=== PATIENT | male | born 2000 | race Caucasian/White ===

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

== ENCOUNTER 2019-01-21 00:56 | Emergency (ER) | payer MEDICAID ==
[~2019-01-21] VITALS: Ht 175.3 cm; Wt 67.2 kg
[2019-01-21] MEDS ORDERED: IBUPROFEN 600MG TABLET PO STA (03:40)
[2019-01-21 04:50] VITALS: BP 107/72
== END 2019-01-21 05:08 | disposition home or self-care (01) ==
LOC: ER 00:56
DX: J45.909 Unspecified asthma, uncomplicated (principal); J20.9 Acute bronchitis, unspecified; Z87.891 Personal history of nicotine dependence
CPT/HCPCS: 71045; 87070; 87430; 99284; Z7610

== ENCOUNTER 2024-08-22 11:23 | Emergency (ER) | payer BC, MEDICAID ==
[~2024-08-22] VITALS: Ht 177.8 cm; Wt 85.0 kg
[2024-08-22 11:41] VITALS: O2SAT 98
[2024-08-22] MEDS: LIDOCAINE HCL/PF 1% 10 MG/ML 5ML VIAL INFIL ONE (12:28)
[2024-08-22] MEDS ORDERED: CEPH500C2 MT (13:11)
[2024-08-22 13:28] VITALS: BP 132/80; PULSE 72; RESP 16; TEMP 37.00296; O2SAT 99
== END 2024-08-22 13:30 | disposition home or self-care (01) ==
LOC: ER 11:23
DX: L02.01 Cutaneous abscess of face (principal); J45.909 Unspecified asthma, uncomplicated
CPT/HCPCS: 10060; 99283; J3490; Z7610 ×5

== ENCOUNTER 2024-11-27 12:12 | Emergency (ER) | payer BC ==
[~2024-11-27] VITALS: Ht 180.3 cm; Wt 97.0 kg
[~2024-11-27 12:12] MED LIST: CEPH500C2 MT
[2024-11-27 12:15] VITALS: BP 197/105; RESP 18; TEMP 37.1; O2SAT 97
[2024-11-27 12:16] VITALS: PULSE 94; O2SAT 98
[2024-11-27] MEDS: ONDANSETRON HCL 4MG/2ML INJ IM ONE (14:26)
[2024-11-27 15:47] LABS: BASOPHILS % 0.8 % (0.0-2.0); EOSINOPHILS % 0.1 % (0.0-5.0); HEMATOCRIT. 48.5 % (42.0-52.0); HEMOGLOBIN. 16.5 g/dL (14.0-18.0); LYMPHOCYTES % 16.7 % (20.0-50.0); MEAN CORPUSCULAR HEMOGLOBIN 31.6 pg (28.0-32.0); MEAN CORPUSCULAR HGB CONC 34.1 g/dL (31.0-37.0); MEAN CORPUSCULAR VOLUME 92.9 fL (80.0-94.0); MEAN PLATELET VOLUME 9.1 fl (7.4-10.4); MONOCYTES % 9.5 % (2.0-8.0); NEUTROPHILS % 72.9 % (40.0-76.0); PLATELET 181 x1000/uL (130-400); RED BLOOD CELL COUNT 5.23 mill/uL (4.7-6.1); RED CELL DISTRIBUTION WIDTH 14.2 % (11.6-14.6); WHITE BLOOD COUNT 5.3 x1000/uL (4.5-11.0)
[2024-11-27 15:50] LABS: CHLORIDE 108 mEq/L (98-107); POTASSIUM 4.4 mEq/L (3.5-5.1); SODIUM 140 mEq/L (136-145)
[2024-11-27 15:51] LABS: CALCIUM 9.4 mg/dL (8.7-10.4); CARBON DIOXIDE 21 mEq/L (21-32)
[2024-11-27 15:56] LABS: GLUCOSE 115 mg/dL (70-105); UREA NITROGEN BLOOD 15 mg/dL (9-23)
[2024-11-27] MEDS ORDERED: ONDA-239 PO (16:20)
== END 2024-11-27 16:34 | disposition left against medical advice (07) ==
LOC: ER 12:20
DX: B34.9 Viral infection, unspecified (principal); J45.909 Unspecified asthma, uncomplicated
CPT/HCPCS: 80048; 85025; 36415; 96372; 99284; J2405; Z7610

== ENCOUNTER 2025-07-30 12:27 | Emergency (ER) | payer MEDICAID ==
[~2025-07-30] VITALS: Ht 180.3 cm; Wt 95.0 kg
[~2025-07-30 12:27] MED LIST changes: -CEPH500C2 MT; +PROT40 MT; +SUCR1TAB PO; +THIA100T72 MT; +TRAZ-251 PO
[2025-07-30 12:43] VITALS: O2SAT 97
[2025-07-30 13:46] LABS: BASOPHILS % 0.7 % (0.0-2.0); EOSINOPHILS % 1.1 % (0.0-5.0); HEMATOCRIT. 43.8 % (42.0-52.0); HEMOGLOBIN. 14.6 g/dL (14.0-18.0); LYMPHOCYTES % 34.1 % (20.0-50.0); MEAN PLATELET VOLUME 10.2 fl (7.4-10.4); MONOCYTES % 8.3 % (2.0-8.0); NEUTROPHILS % 55.8 % (40.0-76.0); PLATELET 171 x1000/uL (130-400); RED BLOOD CELL COUNT 4.83 mill/uL (4.7-6.1); RED CELL DISTRIBUTION WIDTH 13.2 % (11.6-14.6)
[2025-07-30 14:09] LABS: CREATININE 0.9 mg/dL (0.6-1.3)
[2025-07-30 14:10] LABS: UREA NITROGEN BLOOD 9 mg/dL (9-23)
[2025-07-30 14:12] LABS: ASPARTATE AMINOTRANSFERASE 46 IU/L (<34); BILIRUBIN DIRECT 0.3 mg/dL (<=3.0); BILIRUBIN TOTAL 0.9 mg/dL (0.1-1.0); PHOSPHORUS 3.2 mg/dL (2.5-4.9); PROTEIN TOTAL 7.0 g/dL (6.0-8.3); TROPONIN I HIGH SENSITIVITY < 4 ng/L (3.0-53)
[2025-07-30 14:16] LABS: T4 FREE 1.27 ng/dL (0.89-1.76)
[2025-07-30 15:44] VITALS: BP 120/79; PULSE 86; RESP 18; TEMP 36.8; O2SAT 98
== END 2025-07-30 15:45 | disposition home or self-care (01) ==
LOC: ER 12:27
DX: R00.1 Bradycardia, unspecified (principal); J45.909 Unspecified asthma, uncomplicated; Z79.899 Other long term (current) drug therapy
CPT/HCPCS: 36415; 80048; 80076; 83735; 84100; 84439; 84443; 84484; 85025; 93005; 99284